=== PATIENT | female | born 1985 | race Caucasian/White ===

== ENCOUNTER 2024-05-08 17:43 | Emergency (ER) | payer SELFPAY ==
[2024-05-08] MEDS: Diazepam 2 MG Tab PO STA ×2 (18:34→18:56)
[2024-05-08] MEDS: Ketorolac 30 MG/ML SDV IM STA (18:35)
[2024-05-08] MEDS: methylPREDNISolone Sodium Succinate 40 MG/1 ML SDV IM STA (18:35)
[2024-05-08] MEDS: traMADol 50 MG Tab PO STA (20:35)
== END 2024-05-08 20:46 | disposition home or self-care (01) ==
LOC: MW.ED 17:43
DX: M54.2 Cervicalgia (principal); Z79.899 Other long term (current) drug therapy; Z88.2 Allergy status to sulfonamides; Z75.8 Other problems related to medical facilities and other health care
CPT/HCPCS: 72125; 96372; 99283; A9270; J1885; J2919

== ENCOUNTER 2025-02-21 13:57 | Emergency (ER) | payer SELFPAY ==
[2025-02-21] MEDS: Orphenadrine 60 MG/2 ML Inj IM ONE (16:54)
[2025-02-21] MEDS: Ketorolac 60 MG/2 ML SDV IM ONE (16:54)
== END 2025-02-21 17:11 | disposition home or self-care (01) ==
LOC: MW.ED 13:57
DX: S49.92XA Unspecified injury of left shoulder and upper arm, initial encounter (principal); F17.210 Nicotine dependence, cigarettes, uncomplicated; Z75.3 Unavailability and inaccessibility of health-care facilities; Z88.2 Allergy status to sulfonamides; Z79.899 Other long term (current) drug therapy; X58.XXXA Exposure to other specified factors, initial encounter; Y93.89 Activity, other specified
CPT/HCPCS: 73030-26-LT; 73030-LT; 96372; 99284; J1885; J2360